=== PATIENT | male | born 1950 | race Caucasian/White ===

== ENCOUNTER 2023-02-06 13:13 | Outpatient (REF) | payer MEDICARE, MEDICAID, SELFPAY ==
[2023-02-06 15:17] LABS: Syphilis Screen Nonreactive (Nonreactive)
[2023-02-06 15:27] LABS: Vitamin B12 535 pg/mL (200-900)
[2023-02-08 11:08] LABS: Lyme Abs Screen <0.90 index
== END 2023-02-06 13:14 | disposition home or self-care (01) ==
LOC: HO.LAB 13:13
PROVIDERS: Visit Provider Psychiatry & Neurology Neurology
DX: G93.49 Other encephalopathy (principal)
CPT/HCPCS: 36415; 82607; 86617; 86618; 86780